=== PATIENT | female | born 1990 ===

== ENCOUNTER 2017-08-09 18:00 | Emergency (ER) | payer BC, OTHER ==
[2017-08-09 18:35] VITALS: BP 121/69
--- NOTE | 2017-08-09 19:15 | UC ---
Throat Pain/Nasal Rosas HPI - HPI Summary HPI Summary: 27 yo female with sore throat x 1 day no f/c no pate no myalgias mild URI - History of Current Complaint Chief Complaint: UCGeneralIllness Stated Complaint: THROAT COMPLAINT Time Seen by Provider: 08/09/17 18:30 Hx Obtained From: Patient Hx Last Menstrual Period: has mirena Onset/Duration: Gradual Onset, Lasting Hours Severity: Mild Pain Intensity: 3 Pain Scale Used: 0-10 Numeric Cough: None - Epiglottits Risk Factors Epiglottis Risk Factors: Negative - Allergies/Home Medications Allergies/Adverse Reactions: Allergies Allergy/AdvReac Type Severity Reaction Status Date / Time Cephalexin Allergy Hives Verified 08/09/17 18:30 Penicillins Allergy Rash And Verified 08/09/17 18:30 Itching PMH/Surg Hx/FS Hx/Imm Hx Previously Healthy: Yes - Surgical History Surgical History: None - Family History Known Family History: Positive: Cardiac Disease, Hypertension, Diabetes, Respiratory Disease - Social History Alcohol Use: Occasionally Substance Use Type: None Smoking Status (MU): Never Smoked Tobacco Review of Systems Constitutional: Negative Skin: Negative Eyes: Negative ENT: Sore Throat Respiratory: Negative Cardiovascular: Negative Gastrointestinal: Negative Genitourinary: Negative Motor: Negative Neurovascular: Negative Musculoskeletal: Negative Neurological: Negative Psychological: Negative Is Patient Immunocompromised?: No All Other Systems Reviewed And Are Negative: Yes Physical Exam Triage Information Reviewed: Yes Appearance: Well-Appearing, No Pain Distress, Well-Nourished Vital Signs: Initial Vital Signs Temp 98.8 F 08/09/17 18:31 Pulse 79 08/09/17 18:31 Resp 16 08/09/17 18:31 BP 121/69 08/09/17 18:31 Pulse Ox 100 08/09/17 18:31 Vital Signs Reviewed: Yes Eyes: Positive: Conjunctiva Clear ENT: Positive: Hearing grossly normal, Pharyngeal erythema. Negative: Nasal congestion, Nasal drainage, Tonsillar swelling, Tonsillar exudate, Trismus, Muffled/hoarse voice Neck: Positive: Supple, Nontender, No Lymphadenopathy Respiratory: Positive: Lungs clear, Normal breath sounds, No respiratory distress, No accessory muscle use Cardiovascular: Positive: RRR, No Murmur Musculoskeletal: Positive: ROM Intact, No Edema Neurological: Positive: Alert Psychological Exam: Normal Skin Exam: Normal Diagnostics - Laboratory Diagnostic Studies Completed/Ordered: strep test (-) Throat Pain/Nasal Course/Dx - Differential Dx/Diagnosis Provider Diagnoses: acute pharyngitis Discharge - Discharge Plan Condition: Stable Disposition: HOME Patient Education Materials: Pharyngitis (ED) Referrals: Burton Arredondo DO [Primary Care Provider] - 3 Days (if not better) Additional Instructions: strep[ test (-)
== END 2017-08-09 19:06 | disposition home or self-care (01) ==
LOC: UCCORT 18:00
DX: J02.9 Acute pharyngitis, unspecified (principal); Z88.1 Allergy status to other antibiotic agents; Z88.0 Allergy status to penicillin
CPT/HCPCS: 87651; 99211; G0463